=== PATIENT | male | born 1965 | race Caucasian/White ===

== ENCOUNTER 2023-06-05 10:15 | Inpatient (IN) ==
[2023-06-05] MEDS ORDERED: IOPAMIDOL 100 ML BOTTLE IV ONE (10:16)
[2023-06-05] MEDS ORDERED: ACETAMINOPHEN 500 MG TABLET PO ONE (10:37)
[2023-06-05 11:37] LABS: Basophils # (Auto) 0.04 K/mcL (0.00-0.30); Basophils % (Auto) 0.5 % (0.0-2.0); Eosinophils # (Auto) 0.26 K/mcL (0.00-0.70); Eosinophils % (Auto) 3.1 % (0.0-7.0); Hematocrit 46.4 % (40.1-51.0); Hemoglobin 15.1 g/dL (13.7-17.5); Lymphocytes # (Auto) 4.42 K/mcL (1.50-4.80); Lymphocytes % (Auto) 51.9 % (15.5-49.0); Mean Cell Volume 87.4 fL (80.0-100.0); Mean Corpuscular HGB Conc 32.5 g/dL (31.0-36.0); Mean Platelet Volume 9.2 fL (8.8-12.5); Monocytes # (Auto) 0.64 K/mcL (0.10-0.90); Monocytes % (Auto) 7.5 % (1.0-12.0); Neutrophils % (Auto) 36.6 % (38.0-78.0); Platelet Count 202 K/mcL (140-440); RBC 5.31 M/mcL (4.63-6.08); Red Cell Distribution Width 13.6 % (11.5-14.5); WBC 8.5 K/mcL (4.5-11.0)
[2023-06-05 11:56] LABS: ALT/SGPT 33 U/L (<40); AST/SGOT 27 U/L (<40); Albumin 3.5 gm/dL (3.2-5.2); Albumin/Globulin Ratio 1.5 (1.0-2.3); Alkaline Phosphatase 57 U/L (39-117); Bilirubin,Total 0.3 mg/dL (0.1-1.0); Blood Urea Nitrogen 16 mg/dL (6-20); Calcium 8.8 mg/dL (8.6-10.4); Carbon Dioxide 30 mmol/L (22-30); Chloride 98 mmol/L (96-108); Globulin 2.4 gm/dL (2.2-3.7); Glomerular Filtration Rate 110; Glucose 116 mg/dL (70-105)
[2023-06-05 15:15] LABS: Appearance,Urine CLEAR (Clear); Bilirubin,Urine NEGATIVE (Negative); Color,Urine YELLOW; Culture Indicated,Urine No; Glucose,Urine (UA) NEGATIVE (Negative); Ketones,Urine TRACE mg/dL (Negative); Leukocyte Esterase,Urine NEGATIVE /uL (Negative); Mucus,Urine Few /hpf; Nitrate,Urine NEGATIVE (Negative); PH,Urine 5.5 (5.0-9.0); Protein,Urine NEGATIVE (Negative); Urine Blood TRACE-LYSED ery/mcL (Negative); Urine RBC 1 /hpf (0-3); Urine Squamous Epithelial Cell < 1 /hpf (0-4); Urine WBC 1 /hpf (0-4); Urobilinogen,Urine Normal
[2023-06-05] MEDS ORDERED: cefTRIAXone 1 GM VIAL IV ONE (15:59)
[2023-06-05] MEDS ORDERED: AZITHROMYCIN 500 MG in DEXTROSE 5% IN WATER 250 ML IV ONE (16:05)
[2023-06-05] MEDS ORDERED: clonazePAM 1 MG TABLET PO ONE (16:50)
[2023-06-05] MEDS ORDERED: IPRATROPIUM/ALBUTEROL 3 ML AMPUL.NEB NEB PRN (17:38)
[2023-06-05] MEDS ORDERED: POLYETHYLENE GLYCOL 3350 17 GM PACKET PO PRN (17:38)
[2023-06-05] MEDS ORDERED: SENNOSIDES 1 TABLET PO PRN (17:38)
[2023-06-05] MEDS ORDERED: METOPROLOL TARTRATE 5 MG/5 ML VIAL IV PRN (17:38)
[2023-06-05] MEDS ORDERED: POTASSIUM CHLORIDE 20 MEQ TABLET PO PRN ×2 (17:38)
[2023-06-05] MEDS ORDERED: POTASSIUM CHLORIDE 40 MEQ in DEXTROSE 5% IN WATER 500 ML IV PRN (17:38)
[2023-06-05] MEDS ORDERED: ONDANSETRON 4 MG/2 ML VIAL IV PRN (17:38)
[2023-06-05] MEDS ORDERED: MAGNESIUM SULFATE 2 GM/50 ML BAG IV PRN (17:38)
[2023-06-05] MEDS ORDERED: MELATONIN 3 MG TABLET PO ONE (20:36)
[2023-06-05] MEDS: diphenhydrAMINE 25 MG CAPSULE PO PRN (20:43)
[2023-06-05] MEDS: DOCUSATE SODIUM 100 MG CAPSULE PO SCH (20:43)
[2023-06-05] MEDS: ACETAMINOPHEN 325 MG TABLET PO PRN (20:43)
[2023-06-05] MEDS: traZODone HCL 150 MG TABLET PO SCH (20:43)
[2023-06-05] MEDS: AZITHROMYCIN 500 MG in DEXTROSE 5% IN WATER 250 ML IV SCH (21:34)
[2023-06-05] MEDS: 0.9 % SODIUM CHLORIDE 10 ML SYRINGE IV SCH (21:38)
[2023-06-06] MEDS: 0.9 % SODIUM CHLORIDE 10 ML SYRINGE IV SCH ×3 (06:08→20:33)
[2023-06-06 07:30] LABS: ALT/SGPT 31 U/L (<40); AST/SGOT 24 U/L (<40); Albumin 3.3 gm/dL (3.2-5.2); Albumin/Globulin Ratio 1.6 (1.0-2.3); Alkaline Phosphatase 53 U/L (39-117); Bilirubin,Direct < 0.2 mg/dL (0-0.3); Bilirubin,Total 0.2 mg/dL (0.1-1.0); Blood Urea Nitrogen 12 mg/dL (6-20); Calcium 8.5 mg/dL (8.6-10.4); Carbon Dioxide 32 mmol/L (22-30); Chloride 103 mmol/L (96-108); Globulin 2.1 gm/dL (2.2-3.7); Glomerular Filtration Rate 110; Glucose 100 mg/dL (70-105); Lactate Dehydrogenase 157 U/L (135-225); Phosphorous 2.8 mg/dL (2.5-4.5); Triglycerides 131 mg/dL (<150); Uric Acid 6.2 mg/dL (2.5-8.0)
[2023-06-06] MEDS: cefTRIAXone 2 GM in DEXTROSE 5% IN WATER 50 ML IV SCH (09:13)
[2023-06-06] MEDS: DOCUSATE SODIUM 100 MG CAPSULE PO SCH ×2 (09:13→20:31)
[2023-06-06] MEDS ORDERED: AMIODARONE HCL 200 MG TABLET PO PRN (09:52)
[2023-06-06] MEDS ORDERED: TRIAMTERENE/HYDROCHLOROTHIAZID 1 CAP CAPSULE PO PRN (09:52)
[2023-06-06] MEDS: AZITHROMYCIN 500 MG in DEXTROSE 5% IN WATER 250 ML IV SCH (10:26)
[2023-06-06] MEDS: APIXABAN 5 MG TABLET PO SCH ×2 (10:26→20:32)
[2023-06-06] MEDS: clonazePAM 1 MG TABLET PO PRN (10:33)
[2023-06-06] MEDS: AMIODARONE HCL 200 MG TABLET PO SCH ×2 (11:29→20:32)
[2023-06-06] MEDS ORDERED: MELATONIN 3 MG TABLET PO SCH ×2 (19:00→21:00)
[2023-06-06] MEDS: ACETAMINOPHEN 325 MG TABLET PO PRN (20:31)
[2023-06-06] MEDS: DIVALPROEX SODIUM ER 250 MG TABLET PO SCH (20:31)
[2023-06-06] MEDS: diphenhydrAMINE 25 MG CAPSULE PO PRN (20:32)
[2023-06-06] MEDS: traZODone HCL 150 MG TABLET PO SCH (20:32)
[2023-06-07] MEDS: clonazePAM 1 MG TABLET PO PRN ×2 (01:46→09:29)
[2023-06-07] MEDS: 0.9 % SODIUM CHLORIDE 10 ML SYRINGE IV SCH (06:02)
[2023-06-07] MEDS ORDERED: clonazePAM 1 MG TABLET PO PRN (07:47)
[2023-06-07] MEDS ORDERED: OMEPRAZOLE 20 MG CAPSULE PO SCH (09:00)
[2023-06-07] MEDS: APIXABAN 5 MG TABLET PO SCH (09:18)
[2023-06-07] MEDS: DOCUSATE SODIUM 100 MG CAPSULE PO SCH (09:18)
[2023-06-07] MEDS: AMIODARONE HCL 200 MG TABLET PO SCH (09:18)
[2023-06-07] MEDS: cefTRIAXone 2 GM in DEXTROSE 5% IN WATER 50 ML IV SCH (09:19)
[2023-06-07] MEDS: DIVALPROEX SODIUM ER 250 MG TABLET PO SCH (09:29)
[2023-06-07] MEDS: AZITHROMYCIN 500 MG in DEXTROSE 5% IN WATER 250 ML IV SCH (10:24)
[2023-06-07] MEDS ORDERED: GABAPENTIN 300 MG CAPSULE PO SCH (21:00)
== END 2023-06-07 13:15 | disposition home or self-care (01) | DRG 189 ==
LOC: ED 10:15 → MEDSUR 17:30
PROVIDERS: ADMIT Internal Medicine; ATTEND Internal Medicine

== ENCOUNTER 2024-03-04 17:10 | Inpatient (IN) ==
[2024-03-04] MEDS ORDERED: IOPAMIDOL 100 ML BOTTLE IV ONE (17:11)
[2024-03-04 17:59] LABS: Basophils # (Auto) 0.03 K/mcL (0.00-0.30); Basophils % (Auto) 0.3 % (0.0-2.0); Eosinophils # (Auto) 0.32 K/mcL (0.00-0.70); Eosinophils % (Auto) 2.8 % (0.0-7.0); Hemoglobin 17.2 g/dL (13.7-17.5); Lymphocytes # (Auto) 3.64 K/mcL (1.50-4.80); Lymphocytes % (Auto) 31.8 % (15.5-49.0); Mean Cell Volume 90.5 fL (80.0-100.0); Mean Corpuscular HGB Conc 31.9 g/dL (31.0-36.0); Mean Platelet Volume 9.3 fL (8.8-12.5); Monocytes % (Auto) 9.6 % (1.0-12.0); Neutrophils % (Auto) 55.2 % (38.0-78.0); Platelet Count 175 K/mcL (140-440); RBC 5.97 M/mcL (4.63-6.08); WBC 11.5 K/mcL (4.5-11.0)
[2024-03-04 18:10] LABS: ALT/SGPT 20 U/L (<40); AST/SGOT 23 U/L (<40); Albumin/Globulin Ratio 1.4 (1.0-2.3); Alkaline Phosphatase 60 U/L (39-117); Bilirubin,Total 0.7 mg/dL (0.1-1.0); Blood Urea Nitrogen 19 mg/dL (6-20); Carbon Dioxide 31 mmol/L (22-30); Chloride 94 mmol/L (96-108); Globulin 2.8 gm/dL (2.2-3.7); Glomerular Filtration Rate 97; Glucose 128 mg/dL (70-105); Sodium 138 mmol/L (133-145)
[2024-03-04] MEDS: AZITHROMYCIN 500 MG in DEXTROSE 5% IN WATER 250 ML IV ONE (19:15)
[2024-03-04] MEDS: IPRATROPIUM/ALBUTEROL 3 ML AMPUL.NEB NEB ONE ×2 (19:24)
[2024-03-04] MEDS: cefTRIAXone 2 GM in DEXTROSE 5% IN WATER 50 ML IV ONE (20:40)
[2024-03-04] MEDS ORDERED: SENNOSIDES 1 TABLET PO PRN (22:23)
[2024-03-04] MEDS ORDERED: ALBUTEROL SULFATE 2.5 MG/3 ML NEBULIZER NEB PRN (22:23)
[2024-03-04] MEDS ORDERED: ONDANSETRON 4 MG/2 ML VIAL IV PRN (22:23)
[2024-03-04] MEDS ORDERED: LACTULOSE 20 GM/30 ML ORAL.SOL PO PRN (22:23)
[2024-03-04] MEDS ORDERED: ACETAMINOPHEN 325 MG TABLET PO PRN (22:23)
[2024-03-04] MEDS: 0.9 % SODIUM CHLORIDE 1,000 ML IV ONE (23:08)
[2024-03-04] MEDS: 0.9 % SODIUM CHLORIDE 10 ML SYRINGE IV SCH (23:08)
[2024-03-05] MEDS: IPRATROPIUM/ALBUTEROL 3 ML AMPUL.NEB NEB SCH (00:10)
[2024-03-05 05:42] LABS: ABG Methemoglobin 0.2 % (0.4-1.5); Total Hemoglobin 16.8 gm/Dl (13.5-16.5); VBG Base Excess 6 (-2-3); VBG HCO3 32.4 mmol/L (24.0-28.0); VBG Oxygen Saturation 89.1 % (40.0-70.0); VBG PCO2 53.8 mmHg (41.0-51.0); VBG PO2 66.7 mmHg (25.0-40.0)
[2024-03-05 05:56] LABS: Basophils # (Auto) 0.02 K/mcL (0.00-0.30); Basophils % (Auto) 0.2 % (0.0-2.0); Eosinophils # (Auto) 0.17 K/mcL (0.00-0.70); Eosinophils % (Auto) 1.6 % (0.0-7.0); Hematocrit 48.1 % (40.1-51.0); Hemoglobin 15.4 g/dL (13.7-17.5); Lymphocytes # (Auto) 3.46 K/mcL (1.50-4.80); Mean Cell Volume 90.1 fL (80.0-100.0); Mean Platelet Volume 9.1 fL (8.8-12.5); Monocytes # (Auto) 1.11 K/mcL (0.10-0.90); Monocytes % (Auto) 10.6 % (1.0-12.0); Neutrophils % (Auto) 54.2 % (38.0-78.0); Platelet Count 145 K/mcL (140-440); RBC 5.34 M/mcL (4.63-6.08); WBC 10.5 K/mcL (4.5-11.0)
[2024-03-05 06:08] LABS: ALT/SGPT 16 U/L (<40); AST/SGOT 18 U/L (<40); Albumin 3.5 gm/dL (3.2-5.2); Albumin/Globulin Ratio 1.4 (1.0-2.3); Alkaline Phosphatase 50 U/L (39-117); Bilirubin,Direct < 0.2 mg/dL (0-0.3); Bilirubin,Total 0.5 mg/dL (0.1-1.0); Blood Urea Nitrogen 15 mg/dL (6-20); Calcium 8.5 mg/dL (8.6-10.4); Carbon Dioxide 32 mmol/L (22-30); Chloride 95 mmol/L (96-108); Globulin 2.5 gm/dL (2.2-3.7); Glomerular Filtration Rate 118; Glucose 99 mg/dL (70-105); Lactate Dehydrogenase 186 U/L (135-225); Phosphorous 3.2 mg/dL (2.5-4.5); Sodium 135 mmol/L (133-145); Triglycerides 169 mg/dL (<150); Uric Acid 5.7 mg/dL (2.5-8.0)
[2024-03-05] MEDS ORDERED: GABAPENTIN 100 MG CAPSULE PO SCH (08:15)
[2024-03-05] MEDS: IPRATROPIUM/ALBUTEROL 3 ML AMPUL.NEB NEB ONE (08:43)
[2024-03-05] MEDS: DIVALPROEX SODIUM ER 250 MG TABLET PO SCH (09:13)
[2024-03-05] MEDS: cefTRIAXone 1 GM VIAL IV SCH (09:13)
[2024-03-05] MEDS: GABAPENTIN 300 MG CAPSULE PO SCH (09:14)
[2024-03-05] MEDS: DOCUSATE SODIUM 100 MG CAPSULE PO SCH (09:14)
[2024-03-05] MEDS: OMEPRAZOLE 20 MG CAPSULE PO SCH (09:14)
[2024-03-05] MEDS: APIXABAN 5 MG TABLET PO SCH (09:14)
[2024-03-05] MEDS: clonazePAM 1 MG TABLET PO PRN (09:17)
[2024-03-05] MEDS: GABAPENTIN 400 MG CAPSULE PO SCH (21:11)
[2024-03-05] MEDS: traZODone HCL 100 MG TABLET PO SCH (21:12)
[2024-03-05] MEDS: MELATONIN 3 MG TABLET PO SCH (21:13)
== END 2024-03-06 11:15 | disposition home or self-care (01) | DRG 177 ==
LOC: ED 17:10 → ICU 22:15
PROVIDERS: ADMIT Internal Medicine; ATTEND Internal Medicine